=== PATIENT | male | born 2005 | race Caucasian/White ===

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

== ENCOUNTER 2024-07-25 13:15 | Emergency (ER) | payer SELFPAY ==
[2024-07-25 13:35] VITALS: BP 106/72; PULSE 52; RESP 20; TEMP 36.6; O2SAT 100; BMI 19.9
--- NOTE | 2024-07-25 13:38 | EXP.UTC ---
Discharge Plan Disposition Patient Disposition: Home, Self-Care Condition: Good Prescriptions Prescriptions: New metronidazole 500 mg tablet 2,000 mg PO ONCE Qty: 4 0RF ondansetron 4 mg Tablet,Disintegrating 4 mg PO Q8H PRN (Reason: Nausea) Qty: 6 0RF No Action ondansetron 4 mg tablet,disintegrating 4 mg PO Q8H PRN (Reason: nausea and vomiting) Qty: 10 0RF amoxicillin-pot clavulanate 875-125 mg Tablet 1 tab PO Q12H 7 Days Qty: 14 0RF fluticasone propionate [Flonase Allergy Relief] 50 mcg/actuation spray,suspension 1 - 2 spray intranasal DAILY Qty: 16 0RF Rx Instructions: administer into each nostril daily Referrals Follow up/Referrals: Provider,Referral, MD [Primary Care Provider] - See instructions Activity Restrictions/Add. Instructions Additional Instructions/Restrictions: Drink plenty of fluids with the medication. Don't drink alcohol for a couple of days after taking the metronidazole (flagyl) antibiotic. Take the zofran (ondesetron) if the antibiotic upsets your stomach. Abstain from unprotected sex for 1 week after being treated for trichomonas. Follow up with your regular doctor. GO TO THE ER FOR ANY WORSENING SYMPTOMS Clinical Impressions Clinical Impression: Exposure to STD Stand Alone Forms Stand Alone Forms: Work/School Release Instructions Patient Instructions: Metronidazole, DI for Trichomoniasis Print Language Print Language: Croatian Discharge ED Provider: Sean Friedman [facility] [place] HPI General Stated complaint: STI tested Time Seen by Provider: 07/25/24 13:38 History of Present Illness Provider Complaint: He states that he was notified that he was exposed to trichomonas by a sex partner. He denies any symptoms. Related Data Previous Rx's ?Medication ?Instructions ?Recorded amoxicillin 875 mg-potassium 1 tab PO Q12H 7 days #14 tabs 07/20/23 clavulanate 125 mg tablet fluticasone propionate 50 1 - 2 spray intranasal DAILY #16 07/20/23 mcg/actuation nasal grams spray,suspension (Flonase Allergy Relief) ondansetron 4 mg disintegrating 4 mg PO Q8H PRN nausea and 07/20/23 tablet vomiting #10 tabs metronidazole 500 mg tablet 2,000 mg (4 x 500 mg) PO ONCE #4 07/25/24 tabs ondansetron 4 mg disintegrating 4 mg PO Q8H PRN Nausea #6 tabs 07/25/24 tablet Allergies Allergy/AdvReac Type Severity Reaction Status Date / Time No Known Allergies Allergy Unverified 10/27/17 15:17 [facility] Disclaimer: The information contained in this section may have been updated after the patient was seen, as this information can be updated by other users. Social History (Updated 06/17/23 @ 17:55 by Sean Frideman APRN) Smoking Status: Never smoker alcohol intake: never current occupational status: student Travel in the last 8 weeks: None ROS Obtained: Yes All systems reviewed & no additional complaints except as documented Constitutional Constitutional: Denies chills and Denies fever(s) Eyes Eyes: Denies eye discharge ENT Ears, Nose, Mouth, and Throat: Denies dizziness, Denies otalgia and Denies sore throat Cardiovascular Cardiovascular: Denies chest pain Respiratory Respiratory: Denies shortness of breath, Denies chest congestion, Denies cough, Denies stridor and Denies wheezing Gastrointestinal Gastrointestingal: Denies nausea or vomiting Musculoskeletal Musculoskeletal: Reports system reviewed and no additional complaints, except as documented and Denies arthralgias Integumentary/Breasts Skin/Breast: Denies rash Neurologic Neurologic: Denies dizziness and Denies paresthesias Allergic/Immunologic Allergic/Immunologic: Denies wheezing Physical Exam General General appearance: alert and in no apparent distress Head Head exam: atraumatic, normocephalic and normal inspection Eye Eye exam: Present normal appearance, PERRL and EOMI ENT ENT exam: Present normal exam, normal oropharynx, mucous membranes moist, TM's normal bilaterally and normal external ear exam Neck Neck exam: Present normal inspection, full ROM and trachea midline; Absent meningismus or lymphadenopathy Chest Chest inspection: Present normal inspection and symmetric chest wall rise; Absent tenderness Respiratory Respiratory exam: Present normal lung sounds bilaterally; Absent respiratory distress Cardiovascular Cardiovascular exam: Present regular rate and normal rhythm; Absent JVD Abdominal Exam Abdominal exam: Present soft and normal bowel sounds; Absent distention, tenderness or guarding Extremities Exam Extremities exam: Present normal inspection, full ROM and normal capillary refill; Absent calf tenderness Back Exam Back exam: Present normal inspection; Absent tenderness Neurological Exam Neurological exam: Present alert and oriented X3 Psychiatric Psychiatric exam: Present normal affect and normal mood Skin Skin exam: Present warm, dry, intact and normal color Lymphatic Lymphatic Findings: no adenopathy Medical Decision Making Medical Records Medical records reviewed: No I reviewed the patient's medical records. Wayne Inquiry Pt receiving controlled substance: No
[2024-07-25 13:55] VITALS: BP 106/72; PULSE 52; RESP 20; TEMP 36.6; O2SAT 100
[2024-07-27 04:10] LABS: Neisseria gonorrhoeae, NAA Negative (Negative)
== END 2024-07-25 13:57 | disposition home or self-care (01) ==
PROVIDERS: Emergency Provider Nurse Practitioner Family
DX: Z20.2 Contact with and (suspected) exposure to infections with a predominantly sexual mode of transmission (principal)
CPT/HCPCS: 87086; 87491; 87591; 99212; 99213; G0463

== ENCOUNTER 2024-08-28 18:25 | Emergency (ER) | payer SELFPAY ==
[2024-08-28 18:35] VITALS: BP 135/78; PULSE 92; RESP 18; TEMP 36.6; O2SAT 98; BMI 19.3
--- NOTE | 2024-08-28 18:38 | EXP.UTC ---
Discharge Plan Disposition Patient Disposition: Home, Self-Care Condition: Good Prescriptions Prescriptions: New ibuprofen [IBU] 800 mg tablet 800 mg PO Q8HP PRN (Reason: Moderate Pain) Qty: 30 0RF amoxicillin-pot clavulanate 875-125 mg Tablet 1 tab PO Q12H Qty: 20 0RF Referrals Follow up/Referrals: Provider,Referral, [Primary Care Provider] - See instructions Activity Restrictions/Add. Instructions Additional Instructions/Restrictions: Take tylenol or ibuprofen for pain or fever. Take the antibiotics as directed. Follow up with your regular doctor. Follow up with a dentist. GO TO THE ER FOR ANY WORSENING SYMPTOMS Clinical Impressions Clinical Impression: Dental abscess, Jaw pain Stand Alone Forms Stand Alone Forms: Work/School Release Instructions Patient Instructions: DI for Tooth Abscess, DI for Dental Pain, Ibuprofen, Amoxicillin and Clavulanic Acid Print Language Print Language: Samoan Discharge ED Provider: Sean Friedman [facility] [place] HPI General Stated complaint: Dental pain Mode of Arrival: Ambulatory Source of Information: Patient Time Seen by Provider: 08/28/24 18:38 Description of Symptoms (Recalled from Triage Doc. by RN): GUM INFECTION, BILATERAL WITH SWELLING 08/18 PAIN HEENT Symptoms (Recalled from RN notes): Yes Resp Symptoms (Recalled from RN notes): No Skin Symptoms (Recalled from RN notes): No MS Symptoms (Recalled from RN notes): No Functional Status (Recalled from RN notes): WNL History of Present Illness Provider Complaint: He states that he has had worsening dental pain for the past several days. He has multiple decayed and cracked teeth. He is having swelling of his gums of his left upper jaw. Related Data Previous Rx's ?Medication ?Instructions ?Recorded amoxicillin 875 mg-potassium 1 tab PO Q12H #20 tabs 08/28/24 clavulanate 125 mg tablet ibuprofen 800 mg tablet (IBU) 800 mg PO Q8HP PRN Moderate Pain 08/28/24 #30 tabs Allergies Allergy/AdvReac Type Severity Reaction Status Date / Time No Known Allergies Allergy Unverified 10/27/17 15:17 Worker's Comp Is this a Worker's Comp case?: No [facility] Disclaimer: The information contained in this section may have been updated after the patient was seen, as this information can be updated by other users. Social History (Updated 06/17/23 @ 17:55 by Sean Friedman APRN) Smoking Status: Never smoker alcohol intake: never current occupational status: student Travel in the last 8 weeks: None ROS Obtained: Yes All systems reviewed & no additional complaints except as documented Constitutional Constitutional: Denies chills and Denies fever(s) Eyes Eyes: Denies eye discharge ENT Ears, Nose, Mouth, and Throat: Reports as per HPI, Denies dizziness, Denies otalgia and Denies sore throat Cardiovascular Cardiovascular: Denies chest pain Respiratory Respiratory: Denies shortness of breath, Denies chest congestion, Denies cough, Denies stridor and Denies wheezing Gastrointestinal Gastrointestingal: Denies nausea or vomiting Musculoskeletal Musculoskeletal: Reports system reviewed and no additional complaints, except as documented and Denies arthralgias Integumentary/Breasts Skin/Breast: Denies rash Neurologic Neurologic: Denies dizziness and Denies paresthesias Allergic/Immunologic Allergic/Immunologic: Denies wheezing Physical Exam General General appearance: alert and in no apparent distress Head Head exam: atraumatic, normocephalic and normal inspection Eye Eye exam: Present normal appearance, PERRL and EOMI ENT ENT exam: Present mucous membranes moist, TM's normal bilaterally and normal external ear exam Expanded ENT Exam Nose exam: Absent sinus tenderness Nasal speculum exam: Bilateral: normal Mouth exam: Present normal external inspection; Absent drooling Teeth exam: Present dental caries, fractured tooth #, dental tenderness # and gingival swelling Throat exam: Present normal inspection Neck Neck exam: Present normal inspection, full ROM and trachea midline; Absent meningismus or lymphadenopathy Chest Chest inspection: Present normal inspection and symmetric chest wall rise; Absent tenderness Respiratory Respiratory exam: Present normal lung sounds bilaterally; Absent respiratory distress Cardiovascular Cardiovascular exam: Present regular rate and normal rhythm; Absent JVD Abdominal Exam Abdominal exam: Present soft and normal bowel sounds; Absent distention, tenderness or guarding Extremities Exam Extremities exam: Present normal inspection, full ROM and normal capillary refill; Absent calf tenderness Back Exam Back exam: Present normal inspection; Absent tenderness Neurological Exam Neurological exam: Present alert and oriented X3 Psychiatric Psychiatric exam: Present normal affect and normal mood Skin Skin exam: Present warm, dry, intact and normal color Lymphatic Lymphatic Findings: no adenopathy Medical Decision Making Medical Records Medical records reviewed: No I reviewed the patient's medical records. Screening: Per USPSTF and CDC recommendations, given the prevalence of disease in our region, it is our hospital?s policy to screen for HIV and viral Hepatitis for all patients aged 18 and over and those with ongoing risk factors. Wayne Inquiry Pt receiving controlled substance: No Vital Signs: 08/28/24 18:35 Temperature 97.8 F Temperature Source Oral Pulse Rate [Right Brachial] 92 H Respiratory Rate 18 Blood Pressure [Left Arm] 135/78 Blood Pressure Mean [Left Arm] 97 02 Sat by Pulse Oximetry 98
[2024-08-28 18:48] VITALS: BP 135/78; PULSE 92; RESP 18; TEMP 36.6
== END 2024-08-28 18:53 | disposition home or self-care (01) ==
PROVIDERS: Emergency Provider Nurse Practitioner Family
DX: K04.7 Periapical abscess without sinus (principal); R68.84 Jaw pain
CPT/HCPCS: 99213; G0381

== ENCOUNTER 2024-11-25 16:58 | Emergency (ER) | payer SELFPAY ==
[2024-11-25 17:10] VITALS: BP 112/80; PULSE 86; RESP 19; TEMP 36.8; O2SAT 98; BMI 20.3
--- NOTE | 2024-11-25 17:16 | ED_ITS ---
Discharge Plan Disposition Patient Disposition: Home, Self-Care Condition: Good Prescriptions Prescriptions: New clindamycin HCl 300 mg capsule 300 mg PO Q8H Qty: 30 0RF ibuprofen [IBU] 800 mg tablet 800 mg PO Q8HP PRN (Reason: Moderate Pain) Qty: 30 0RF Referrals Follow up/Referrals: Provider,Referral, [Primary Care Provider] - See instructions Activity Restrictions/Add. Instructions Additional Instructions/Restrictions: Drink plenty of fluids. Take the medications as directed. Follow up with your regular doctor. GO TO THE ER FOR ANY WORSENING SYMPTOMS Make sure you are following with your dentist. Having to take antibiotics frequently like you are havitng to do is hard on you GI tract. Make sure you are eating yogurt frequently or taking a probiotic while you on the antibiotics. Ask the pharmacist which probiotic they recommend for you to take to try to protect yourself from the frequent antibiotics. Clinical Impressions Clinical Impression: Dental abscess Instructions Patient Instructions: DI for Tooth Abscess, Ibuprofen, Clindamycin Print Language Print Language: Solomon Islander Discharge ED Provider: Sean Friedman [facility] General Stated complaint: Toothache Time Seen by Provider: 11/25/24 17:12 Related Data Previous Rx's ?Medication ?Instructions ?Recorded clindamycin HCl 300 mg capsule 300 mg PO Q8H #30 caps 11/25/24 ibuprofen 800 mg tablet (IBU) 800 mg PO Q8HP PRN Moderate Pain 11/25/24 #30 tabs Allergies Allergy/AdvReac Type Severity Reaction Status Date / Time No Known Allergies Allergy Verified 11/25/24 17:18 [facility] Disclaimer: The information contained in this section may have been updated after the patient was seen, as this information can be updated by other users. Medical History (Updated 11/25/24 @ 17:55 by Sean Friedman APRN) No significant past medical history Social History (Updated 06/17/23 @ 17:55 by Sean Friedman APRN) Smoking Status: Never smoker alcohol intake: never current occupational status: student Travel in the last 8 weeks: None Have you lived/traveled outside [place] in past 30 days?: No Contact w/someone who lives/traveled outside US past 30 days?: No Exposure to someone with infectious disease in past 14 days?: No Do you have a fever (greater than 100.4 F or 38 C)?: No Have you tested positive for COVID-19: No Exposed to someone with COVID-19 in past 14 days?: No Do you have a sore throat?: No Do you have a cough?: No Do you have any weakness?: No Do you have any diarrhea?: No Are you experiencing any unusual bleeding?: No Do you have any muscle aches/pain?: No Do you have any abdominal pain?: No Are you experiencing loss of taste or smell?: No ROS Obtained: Yes All systems reviewed & no additional complaints except as documented Constitutional Constitutional: Denies chills and Denies fever(s) Eyes Eyes: Denies eye discharge ENT Ears, Nose, Mouth, and Throat: Reports as per HPI, Denies dizziness, Denies otalgia and Denies sore throat Cardiovascular Cardiovascular: Denies chest pain Respiratory Respiratory: Denies shortness of breath, Denies chest congestion, Denies cough, Denies stridor and Denies wheezing Gastrointestinal Gastrointestingal: Denies nausea or vomiting Musculoskeletal Musculoskeletal: Reports system reviewed and no additional complaints, except as documented and Denies arthralgias Integumentary/Breasts Skin/Breast: Denies rash Neurologic Neurologic: Denies dizziness and Denies paresthesias Allergic/Immunologic Allergic/Immunologic: Denies wheezing Physical Exam General General appearance: alert and in no apparent distress Head Head exam: atraumatic, normocephalic and normal inspection Eye Eye exam: Present normal appearance, PERRL and EOMI ENT ENT exam: Present mucous membranes moist, TM's normal bilaterally and normal external ear exam Expanded ENT Exam Nose exam: Absent sinus tenderness Nasal speculum exam: Bilateral: normal Mouth exam: Present normal external inspection; Absent drooling Teeth exam: Present dental caries, fractured tooth # and dental tenderness # Throat exam: Present normal inspection Neck Neck exam: Present normal inspection, full ROM and trachea midline; Absent meningismus or lymphadenopathy Chest Chest inspection: Present normal inspection and symmetric chest wall rise; Absent tenderness Respiratory Respiratory exam: Present normal lung sounds bilaterally; Absent respiratory distress Cardiovascular Cardiovascular exam: Present regular rate and normal rhythm; Absent JVD Abdominal Exam Abdominal exam: Present soft and normal bowel sounds; Absent distention, tenderness or guarding Extremities Exam Extremities exam: Present normal inspection, full ROM and normal capillary refill; Absent calf tenderness Back Exam Back exam: Present normal inspection; Absent tenderness Neurological Exam Neurological exam: Present alert and oriented X3 Psychiatric Psychiatric exam: Present normal affect and normal mood Skin Skin exam: Present warm, dry, intact and normal color Lymphatic Lymphatic Findings: no adenopathy Medical Decision Making Medical Records Medical records reviewed: No I reviewed the patient's medical records. Screening: Per USPSTF and CDC recommendations, given the prevalence of disease in our region, it is our hospital?s policy to screen for HIV and viral Hepatitis for all patients aged 18 and over and those with ongoing risk factors. Wayne Inquiry Pt receiving controlled substance: No
[2024-11-25 17:52] VITALS: BP 112/80; PULSE 86; RESP 19; TEMP 36.8; O2SAT 98
== END 2024-11-25 18:00 | disposition home or self-care (01) ==
PROVIDERS: Emergency Provider Nurse Practitioner Family
DX: K04.7 Periapical abscess without sinus (principal)
CPT/HCPCS: 99212; G0381

== ENCOUNTER 2024-12-25 19:44 | Emergency (ER) | payer SELFPAY ==
[2024-12-25 19:48] VITALS: BP 124/79; PULSE 73; RESP 16; TEMP 36.8; O2SAT 100; BMI 21.2
--- NOTE | 2024-12-25 19:59 | PC.NURSE ---
Visual Acuity: R 20/70 L 20/100 Both 20/50 Patient typically wears contact lenses. Patient has not had contacts in since incident.
--- NOTE | 2024-12-25 20:08 | PC.NURSE ---
Provider at bedside. Eye tray and drake lamp at bedside.
--- NOTE | 2024-12-25 20:15 | HMH.EDGENADL ---
Discharge Plan Disposition Patient Disposition: Home, Self-Care Prescriptions Prescriptions: No Action clindamycin HCl 300 mg capsule 300 mg PO Q8H Qty: 30 0RF ibuprofen [IBU] 800 mg tablet 800 mg PO Q8HP PRN (Reason: Moderate Pain) Qty: 30 0RF Referrals Follow up/Referrals: Provider,Referral, MD [Primary Care Provider] - See instructions Activity Restrictions/Add. Instructions Additional Instructions/Restrictions: At this time it was felt you are safe to be discharged home. If new or worsening symptoms please do not hesitate to return the emergency department. Please apply 0.5 cm of the erythromycin ointment on the inside of your lower lid and blink multiple times to cover your entire eye 3 times a day both eyes for 5 days. Please do not wear your contacts during this time to lower your risk of infection. If your symptoms persist beyond [address] Selby at [facility] and significant tachycardia for continued evaluation. Clinical Impressions Clinical Impression: Welders' keratitis of both eyes Print Language Print Language: Mauritanian Discharge ED Provider: Smooth Charles General Adult HPI General Chief complaint: Eye Problems Stated complaint: AO 12/23/24 1530 flash burn both eyes Time Seen by Provider: 12/25/24 20:01 Mode of Arrival: Ambulatory Source of Information: Patient Limitations: No Limitations Description of Symptoms (Recalled from ER Triage Doc. by RN): Presents ambulatory to triage. 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 States the incident happened on Thursday. States bilateral eyes are burning and itching. States, I can't find anything to make them feel better. Denies any physical burn. Large rosalio noted to left face. 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 Onset was acute, occurring Thursday when his batteries failed to his welders goggles and he had significant Welders flash. Since then it has been difficult for him to look at bright lights. He does not have his contacts in currently. Due to persistent symptoms he presents here for continued evaluation. No trauma. Related Data Previous Rx's ?Medication ?Instructions ?Recorded clindamycin HCl 300 mg capsule 300 mg PO Q8H #30 caps 11/25/24 ibuprofen 800 mg tablet (IBU) 800 mg PO Q8HP PRN Moderate Pain 11/25/24 #30 tabs Allergies Allergy/AdvReac Type Severity Reaction Status Date / Time No Known Allergies Allergy Verified 11/25/24 17:18 [facility] Disclaimer: The information contained in this section may have been updated after the patient was seen, as this information can be updated by other users. Medical History (Updated 12/25/24 @ 20:14 by Smooth Charles MD) No significant past medical history Social History (Updated 06/17/23 @ 17:55 by Sean Friedman APRN) Smoking Status: Current every day smoker alcohol intake: never current occupational status: student Travel in the last 8 weeks: None Have you lived/traveled outside US in past 30 days?: No Contact w/someone who lives/traveled outside US past 30 days?: No Exposure to someone with infectious disease in past 14 days?: No Do you have a fever (greater than 100.4 F or 38 C)?: No Have you tested positive for COVID-19: No Exposed to someone with COVID-19 in past 14 days?: No Do you have a sore throat?: No Do you have a cough?: No Do you have any weakness?: No Do you have any diarrhea?: No Are you experiencing any unusual bleeding?: No Do you have any muscle aches/pain?: No Do you have any abdominal pain?: No Are you experiencing loss of taste or smell?: No ROS Obtained: Yes Systems reviewed as appropriate & no additional complaints except as documented Physical Exam General General appearance: alert and in no apparent distress Head Head exam: atraumatic and normocephalic Eye Eye exam: Present PERRL, EOMI and conjunctival redness ENT ENT exam: Present mucous membranes moist Neck Neck exam: Present normal inspection Chest Chest inspection: Present normal inspection and symmetric chest wall rise Respiratory Respiratory exam: Absent respiratory distress Cardiovascular Cardiovascular exam: Present regular rate and normal rhythm Abdominal Exam Abdominal exam: Present soft Extremities Exam Extremities exam: Present normal inspection Neurological Exam Neurological exam: Present alert and CN II-XII intact Psychiatric Psychiatric exam: Present normal affect Skin Skin exam: Present warm and dry Medical Decision Making Medical Records Screening: Per USPSTF and CDC recommendations, given the prevalence of disease in our region, it is our hospital?s policy to screen for HIV and viral Hepatitis for all patients aged 18 and over and those with ongoing risk factors. 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 Patient is hemodynamically stable nontoxic-appearing upon arrival, afebrile. History and physical strongly consistent with Welders keratitis. Given this patient was given erythromycin ointment bilateral eyes and was instructed not to wear contacts and to apply erythromycin room on outpatient basis and if symptoms persist to follow-up or return for continued evaluation. Workable labs and imaging was considered however given highly suspected diagnosis will be deferred at this time. Patient was discharged in stable condition. Procedure: Procedure performed was fluorescein facilitated eye exam. Tetracaine was applied to both eyes with good effect, fluorescein was applied and using Ware lamp had scattered uptake that was punctate over the cornea. Patient tolerated the procedure well. There were no immediate complications. Critical Care Critical Care Time Critical Care Time: No
--- NOTE | 2024-12-25 20:26 | PC.NURSE ---
Per provider's verbal order. One strip of Erythromycin ointment applied to each eye.
[2024-12-25 20:33] VITALS: BP 132/85; PULSE 85; RESP 16; TEMP 36.8; O2SAT 97
== END 2024-12-25 20:34 | disposition home or self-care (01) ==
PROVIDERS: Emergency Provider Emergency Medicine
DX: H16.133 Photokeratitis, bilateral (principal); H57.13 Ocular pain, bilateral; F17.210 Nicotine dependence, cigarettes, uncomplicated; W31.1XXA Contact with metalworking machines, initial encounter
CPT/HCPCS: 99283

== ENCOUNTER 2025-02-23 16:47 | Emergency (ER) | payer SELFPAY ==
[2025-02-23 16:51] VITALS: BP 112/64; PULSE 89; RESP 18; TEMP 36.6; O2SAT 100; BMI 21.2
--- NOTE | 2025-02-23 16:57 | ED_ITS ---
<Statement entered by Cortney Ramon DO - 02/24/25 00:38> I was consulted by the ALISHA, and we discussed the complexity of the problems being addressed. I approved the treatment and management plan for this patient's care in the emergency department, thus performing a substantive portion of the medical decision making. Cortney Ramon DO Discharge Plan Disposition Patient Disposition: Home, Self-Care Condition: Good Prescriptions Prescriptions: No Action ibuprofen [IBU] 800 mg tablet 800 mg PO Q8HP PRN (Reason: Moderate Pain) Qty: 30 0RF Referrals Follow up/Referrals: Provider,Referral, MD [Primary Care Provider] - See instructions Activity Restrictions/Add. Instructions Additional Instructions/Restrictions: Recommend taking Tylenol alternating with Motrin every 4 hours for your symptoms. If you have any continuing new or worsening signs or symptoms follow- up with your PCP return to the ER as needed. Clinical Impressions Clinical Impression: Upper respiratory infection Qualifiers: URI type: unspecified URI Qualified Code(s): J06.9 - Acute upper respiratory infection, unspecified Stand Alone Forms Stand Alone Forms: Work/School Release Print Language Print Language: Indonesian Discharge ED Provider: Cortney Ramon General Adult HPI General Chief complaint: Upper Respiratory Infection Stated complaint: headache,sore throat,sinus pressure Time Seen by Provider: 02/23/25 16:57 Mode of Arrival: Ambulatory Source of Information: Patient Description of Symptoms (Recalled from ER Triage Doc. by RN): Pt presents with c/o sinus pressure, and sore throat x 1 week. History of Present Illness HPI narrative: Patient presents for evaluation of 5 days of headache sore throat and malaise. He denies any fever chills hemoptysis hematochezia melena nausea vomiting diarrhea. He has tried Tylenol and Motrin that have not helped his headache. Related Data Previous Rx's ?Medication ?Instructions ?Recorded ibuprofen 800 mg tablet (IBU) 800 mg PO Q8HP PRN Moderate Pain 11/25/24 #30 tabs Allergies Allergy/AdvReac Type Severity Reaction Status Date / Time No Known Allergies Allergy Verified 11/25/24 17:18 [facility] Disclaimer: The information contained in this section may have been updated after the patient was seen, as this information can be updated by other users. Medical History (Updated 02/23/25 @ 18:32 by DIDIER Escobar) No significant past medical history Social History (Updated 06/17/23 @ 17:55 by Sean Friedman APRN) Smoking Status: Current every day smoker alcohol intake: never current occupational status: student Travel in the last 8 weeks: None Have you lived/traveled outside US in past 30 days?: No Contact w/someone who lives/traveled outside US past 30 days?: No Exposure to someone with infectious disease in past 14 days?: No Do you have a fever (greater than 100.4 F or 38 C)?: No Have you tested positive for COVID-19: No Exposed to someone with COVID-19 in past 14 days?: No Do you have a sore throat?: No Do you have a cough?: No Do you have any weakness?: No Do you have any diarrhea?: No Are you experiencing any unusual bleeding?: No Do you have any muscle aches/pain?: No Do you have any abdominal pain?: No Are you experiencing loss of taste or smell?: No ROS Obtained: Yes Systems reviewed as appropriate & no additional complaints except as documented Physical Exam General General appearance: alert and in no apparent distress Respiratory Respiratory exam: Present normal lung sounds bilaterally Cardiovascular Cardiovascular exam: Present regular rate Neurological Exam Neurological exam: Present alert and oriented X3 Medical Decision Making Medical Records Medical records reviewed: Yes I reviewed the patient's medical records. Screening: Per USPSTF and CDC recommendations, given the prevalence of disease in our region, it is our hospital?s policy to screen for HIV and viral Hepatitis for all patients aged 18 and over and those with ongoing risk factors. Wayne Inquiry Pt receiving controlled substance: No Vital Signs: 02/23/25 16:51 02/23/25 18:59 Temperature 98 F 98.3 F Temperature Source Oral Oral Pulse Rate 72 Pulse Rate [Right] 89 Respiratory Rate 18 18 Blood Pressure 118/76 Blood Pressure [Right Arm] 112/64 Blood Pressure Mean [Right Arm] 80 Blood Pressure Source Automatic Cuff Blood Pressure Source [Right Arm] Automatic Cuff Blood Pressure Position Sitting Blood Pressure Position [Right Arm] Sitting 02 Sat by Pulse Oximetry 100 Oxygen Delivery Method Room Air Room Air Lab Data Lab results reviewed: Yes I reviewed the patient's lab results. Lab Results 02/23/25 16:58: SARS-CoV-2 (PCR) Not detected, Influenza A Untype (PCR) Not detected, Influenza Type B (PCR) Not detected, Group A Strep Rapid Negative Orders (Tests/Meds): ED MEDICATIONS Discontinued Medications Generic Name Dose Route Start Last Admin Trade Name Liu PRN Reason Stop Dose Admin Acetaminophen 1,000 mg 02/23/25 17:12 02/23/25 17:18 Acetaminophen 500mg Tab PO 02/23/25 17:13 1,000 mg ONCE ONE Administration Dexamethasone Sodium Phosphate 8 mg 02/23/25 17:15 02/23/25 17:19 Dexamethasone 4mg/Ml 5ml Mdv IM 03/25/25 17:14 8 mg Q6H MICHAEL Administration Ketorolac Tromethamine 30 mg 02/23/25 17:12 02/23/25 17:18 Ketorolac 30mg/Ml Vial IM 02/23/25 17:13 30 mg ONCE ONE Administration Methocarbamol 500 mg 02/23/25 17:12 02/23/25 18:12 Methocarbamol 500mg Tablet PO 02/23/25 17:13 Not Given ONCE ONE ORDERS Category Date Time Status Rapid PCR Covid and Flu A/B Stat Lab 02/23/25 16:58 Completed Strep Scrn Group A (Rapid) Stat Lab 02/23/25 16:58 Completed Medical Decision Narrative: In summary patient is a 19-year-old male who presents to the emergency department for evaluation of headache cough sore throat. Patient is hemodynamically stable upon arrival, afebrile. Physical exam is remarkable for erythematous posterior pharynx without evidence of exudate, no focal neurologic deficits, no nuchal rigidity, clear breath sounds without increased work of breathing or adventitious sounds. No cervical lymphadenopathy.. Differential diagnosis includes upper or lower respiratory tract infection. Initial workup will be conducted with strep COVID and flu swabs. Initial interventions include Tylenol Decadron Robaxin and Toradol initial workup reviewed by me and his strep COVID and flu swabs are negative.. Upon repeat evaluation patient reported moderate improvement in his symptoms. Given this patient is appropriate for discharge with instructions to continue supportive symptomatic care with Tylenol and ibuprofen and close follow-up with his PCP. For any worsening signs or symptoms. Critical Care Critical Care Time Critical Care Time: No
[2025-02-23 17:08] LABS: Coronavirus 19, PCR Not Detected (NotDetected); Influenza A, PCR Not Detected (NotDetected); Influenza B, PCR Not Detected (NotDetected)
[2025-02-23] MEDS: ACETAMINOPHEN 500MG TAB 1000 MG PO (17:18)
[2025-02-23] MEDS: KETOROLAC 30MG/ML VIAL 30 MG IM (17:18)
[2025-02-23] MEDS: DEXAMETHASONE 4MG/ML 5ML MDV 8 MG IM (17:19)
[2025-02-23 17:20] LABS: Strep Scrn Group A (Rapid) Negative (Negative)
[2025-02-23 18:59] VITALS: BP 118/76; PULSE 72; RESP 18; TEMP 36.8; O2SAT 98
== END 2025-02-23 19:00 | disposition home or self-care (01) ==
PROVIDERS: Emergency Provider Emergency Medicine
DX: R51.9 Headache, unspecified (principal); R07.0 Pain in throat; R09.81 Nasal congestion; J06.9 Acute upper respiratory infection, unspecified
CPT/HCPCS: 87430; 87636; 96372; 99283; J1100; J1885

== ENCOUNTER 2025-05-03 05:14 | Emergency (ER) | payer SELFPAY ==
--- OUTSIDE RECORDS SUMMARY | 2025-05-03 05:19 | XMS_ITS | Clinical Summary ---
Author Organization Healthcare Address [address] [place] [address] Care Team Providers Care Tableau Report Developer Name Role Phone Unavailable Primary Care Provider Unavailabl e Social History Tobacco Use Types Packs/Day Years Used Date Smoking Tobacco: Never Alcohol Use Standard Drinks/Week Comments No 0 (1 standard drink = 0.6 oz pure alcohol) Alcoholic Drinks/day: Never Drank Alcohol Sex and Gender Information Value Date Recorded Sex Assigned at Not on file Legal Sex Male 8:29 PM EDT Gender Identity Not on file Sexual Orientation Not on file Last Filed Vital Signs Vital Sign Reading Time Taken Comments Blood Pressure - - Pulse - - Temperature - - Respiratory Rate - - Oxygen Saturation - - Inhaled Oxygen Concentration - - Weight 29.1 kg (64 lb 3.9 oz) 05/25/2013 10:23 A M EDT Height 133.4 cm (4' 4.5 ) 05/25/2013 10:23 AM ED T Body Mass Index 16.39 05/25/2013 10:23 AM EDT Plan of Treatment Not on file
--- OUTSIDE RECORDS SUMMARY | 2025-05-03 05:19 | XMS_ITS | Clinical Summary ---
Author [facility] Address [address] [place] [address] Phone Care Team Providers Care Disintegrator Name Role Phone Unavailable Primary Care Provider Unavailabl e Allergies No known active allergies Medications No known medications Social History Tobacco Use Types Packs/Day Years Used Date Smoking Tobacco: Passive Smo ke Exposure - Never Smoker Alcohol Use Standard Drinks/Week Comments No 0 (1 standard drink = 0.6 oz pur e alcohol) Sex and Gender Information Value Date Recorded Sex Assigned at Not on file Legal Sex Male 4:43 AM EDT Gender Identity Not on file Sexual Orientation Not on file Obstetrics History Last Filed Vital Signs Vital Sign Reading Time Taken Comments Blood Pressure - - Pulse 86 07/16/2012 8:35 PM EDT Temperature 36.6 C (97.9 F) 07/16/2012 8:35 PM EDT Respiratory Rate 16 07/16/2012 8:35 PM EDT Oxygen Saturation 100% 07/16/2012 8:35 PM EDT Inhaled Oxygen Concentration - - Weight 26.1 kg (57 lb 8 oz) 07/16/2012 8:49 PM E DT Height - - Body Mass Index - - Plan of Treatment Health Maintenance Due Date Last Done Comments Annual Wellness Exam 2007 HPV (1 - Male 3-dose series) 2019 Meningococcal B Vaccine (1 o f 2 - Standard) 2020 DTaP/TDaP/Td (1 - Tdap) 2023 Hepatitis B Vaccine (1 of 3 - 19+ 3-dose series) 2023 COVID-19 Vaccine ( - 2023-2 5 season) 2024 Influenza Vaccine (Season Ended) 2025 Pneumococcal Vaccine 0-49 Aged Out No longer eligible based on patient's age to complete this topic
[2025-05-03 05:23] VITALS: BP 126/81; PULSE 72; RESP 16; TEMP 36.7; O2SAT 98; BMI 20.7
--- NOTE | 2025-05-03 05:23 | HMH.EDGENADL ---
Discharge Plan Disposition Patient Disposition: Home, Self-Care Prescriptions Prescriptions: No Action ibuprofen [IBU] 800 mg tablet 800 mg PO Q8HP PRN (Reason: Moderate Pain) Qty: 30 0RF Referrals Follow up/Referrals: Provider,Referral, [Primary Care Provider, Medical] - See instructions Activity Restrictions/Add. Instructions Additional Instructions/Restrictions: Please follow-up with your primary care provider. Please return to the emergency department if you develop any new or worsening symptoms or become concerned for your health. Clinical Impressions Clinical Impression: Sore throat Vomiting Qualifiers: Migraine intractability: nonintractable Print Language Print Language: Cook Islander Discharge ED Provider: Romeo Putnam General Adult HPI General Stated complaint: sore throat, vomiting Time Seen by Provider: 05/03/25 05:15 History of Present Illness HPI narrative: 19-year-old male without significant past medical history presents for sore throat and vomiting. He reports his throat has been sore for the last week and is getting better. He was started on amoxicillin a few days ago, he got it from his mom. He was not definitively diagnosed with strep throat. This morning his stomach was upset and when he was at work he had an episode of vomiting. He had to leave work and was told to go get seen. He reports that he feels better now and does not have any significant complaints besides mild sore throat. Related Data Previous Rx's ?Medication ?Instructions ?Recorded ibuprofen 800 mg tablet (IBU) 800 mg PO Q8HP PRN Moderate Pain 11/25/24 #30 tabs Allergies Allergy/AdvReac Type Severity Reaction Status Date / Time No Known Allergies Allergy Verified 11/25/24 17:18 [facility] Disclaimer: The information contained in this section may have been updated after the patient was seen, as this information can be updated by other users. Medical History (Updated 05/03/25 @ 05:23 by Romeo Putnam MD) No significant past medical history Social History (Updated 06/17/23 @ 17:55 by Sean Friedman APRN) Smoking Status: Current every day smoker alcohol intake: never current occupational status: student Travel in the last 8 weeks?: None ROS Obtained: Yes All systems reviewed & no additional complaints except as documented Physical Exam General General appearance: alert and in no apparent distress Head Head exam: atraumatic and normocephalic Eye Eye exam: Present normal appearance, PERRL and EOMI ENT ENT exam: Present normal oropharynx and normal external ear exam Neck Neck exam: Present normal inspection and full ROM Chest Chest inspection: Present normal inspection and symmetric chest wall rise; Absent tenderness Respiratory Respiratory exam: Present normal lung sounds bilaterally; Absent respiratory distress Cardiovascular Cardiovascular exam: Present regular rate and normal rhythm Abdominal Exam Abdominal exam: Present soft; Absent distention, tenderness or guarding Extremities Exam Extremities exam: Present normal inspection; Absent edema or joint swelling Back Exam Back exam: Present normal inspection; Absent tenderness Neurological Exam Neurological exam: Present alert and oriented X3; Absent motor sensory deficit Psychiatric Psychiatric exam: Present normal affect and normal mood Skin Skin exam: Present warm, dry and normal color Lymphatic Lymphatic Findings: no adenopathy Medical Decision Making Medical Records Medical records reviewed: Yes I reviewed the patient's medical records. Screening: Per USPSTF and CDC recommendations, given the prevalence of disease in our region, it is our hospital?s policy to screen for HIV and viral Hepatitis for all patients aged 18 and over and those with ongoing risk factors. Wayne Inquiry Pt receiving controlled substance: No Wayne was queried for this patient: No Lab Data Lab results reviewed: Yes I reviewed the patient's lab results. Medical Decision Narrative: 1-year-old male without significant past medical history presents for an episode of vomiting and 1 week of sore throat. History was obtained via interactive discussion with patient. On arrival, patient is [afebrile, hemodynamically stable, satting appropriately, alert, oriented x4, GCS 15], moving all extremities spontaneously. Full physical exam performed and significant for clear oropharynx without evidence of exudate or tonsillar erythema. No lymphadenopathy. Abdomen is soft and nontender. Differential includes but is not limited to URI, strep throat, gastroenteritis, pancreatitis, cholecystitis. No significance of emergent pathology at this time given benign exam. Patient's stomach may be upset secondary to his antibiotics. These findings were communicated to patient and he was discharged in stable condition. He declined prescription for nausea medication.. Procedures Risk/Benefits of Procedure(s) Were Explained: Yes Critical Care Critical Care Time Critical Care Time: No
[2025-05-03 05:28] VITALS: BP 126/81; PULSE 72; RESP 16; TEMP 36.7
== END 2025-05-03 05:33 | disposition home or self-care (01) ==
PROVIDERS: Emergency Provider Emergency Medicine
DX: R11.2 Nausea with vomiting, unspecified (principal); R07.0 Pain in throat
CPT/HCPCS: 99282

== ENCOUNTER 2025-05-18 17:04 | Emergency (ER) | payer SELFPAY ==
[2025-05-18 17:12] VITALS: BP 133/89; PULSE 91; RESP 16; TEMP 37; O2SAT 100
--- OUTSIDE RECORDS SUMMARY | 2025-05-18 17:13 | XMS_ITS | Clinical Summary ---
Author Organization Healthcare Address [address] [place] [address] Care Team Providers Care Construction Operations Manager Name Role Phone Unavailable Primary Care Provider [...]
--- OUTSIDE RECORDS SUMMARY | 2025-05-18 17:13 | XMS_ITS | Clinical Summary ---
[facility] Address [address] [place] [address] Phone Care Team Providers Care Financial Services Internship Name Role Phone Unavailable Primary Care Provider [...] - 2023-2 5 season) 2024 Influenza Vaccine (#1) 2025 Pneumococcal Vaccine 0-49 Aged Out No longer eligible based on patient's age to complete this topic
--- NOTE | 2025-05-18 17:17 | HMH.EDGENADL ---
Discharge Plan Disposition Patient Disposition: Home, Self-Care Condition: Good Prescriptions Prescriptions: New amoxicillin-pot clavulanate 875-125 mg tablet 1 tab PO BID 7 Days Qty: 14 0RF No Action ibuprofen [IBU] 800 mg tablet 800 mg PO Q8HP PRN (Reason: Moderate Pain) Qty: 30 0RF Referrals Follow up/Referrals: Provider,Referral, MD [Primary Care Provider, Medical] - See instructions Activity Restrictions/Add. Instructions Additional Instructions/Restrictions: Please follow-up with your dentist in the upcoming days, please utilize Tylenol and ibuprofen as needed for symptomatic relief, please take your antibiotic as prescribed with food. Please return to the emergency department any worsening signs or symptoms. Clinical Impressions Clinical Impression: Dental caries Stand Alone Forms Stand Alone Forms: Work/School Release Instructions Patient Instructions: DI for Tooth Decay, DI for Dental Pain Print Language Print Language: Chilean Discharge ED Provider: Beau Negron General Adult HPI <DIDIER Amaro - Last Filed: 05/18/25 18:14> General Chief complaint: Upper Respiratory Infection Stated complaint: body aches,cough ,tooth pain Time Seen by Provider: 05/18/25 17:13 Mode of Arrival: Ambulatory Source of Information: Patient Description of Symptoms (Recalled from ER Triage Doc. by RN): PT presents to the ED for evaluation of upper resp. infection also complaints of tooth pain. Pt stated his daughter has Hand, foot, mouth and now he feels like he has the flu. History of Present Illness HPI narrative: 19-year-old male presents the emergency department with left-sided tooth pain for the last couple of days, patient states that he has slated dental follow-up/appointment to get all my teeth pulled , next week, patient states the tooth pain has been worsening on the left side for the last couple of days, he denies fever chills chest pain shortness of breath nausea vomiting dysphagia, no constipation no diarrhea no urinary cosmetology, patient does admit to some fatigue, and wants to be evaluated for upper respiratory infection, he states that his daughter has eaqu-vwev-xwi-mouth disease , he does not have any skin manifestations or oral manifestations, patient has any alcohol tobacco or drug use, patient has no other real relevant past medical history takes no other medications at home, has been taking a Profen and Tylenol for his pain. Initial triage vitals are unremarkable. Onset (ago): day(s) Related Data Previous Rx's ?Medication ?Instructions ?Recorded ibuprofen 800 mg tablet (IBU) 800 mg PO Q8HP PRN Moderate Pain 11/25/24 #30 tabs amoxicillin 875 mg-potassium 1 tab PO BID 7 days #14 tabs 05/18/25 clavulanate 125 mg tablet Allergies Allergy/AdvReac Type Severity Reaction Status Date / Time No Known Allergies Allergy Verified 11/25/24 17:18 [facility] <DIDIER Amaro - Last Filed: 05/18/25 18:14> [facility] Disclaimer: The information contained in this section may have been updated after the patient was seen, as this information can be updated by other users. Medical History (Updated 05/18/25 @ 18:13 by DIDIER Amaro) No significant past medical history Social History (Updated 06/17/23 @ 17:55 by Sean Friedman APRN) Smoking Status: Never smoker alcohol intake: never current occupational status: student Travel in the last 8 weeks?: None Have you lived/traveled outside US in past 30 days?: No Contact w/someone who lives/traveled outside US past 30 days?: No Exposure to someone with infectious disease in past 14 days?: No Do you have a fever (greater than 100.4 F or 38 C)?: No Have you tested positive for COVID-19?: No Exposed to someone with COVID-19 in past 14 days?: No Do you have a sore throat?: Yes Do you have a cough?: Yes Do you have any weakness?: No Do you have any diarrhea?: No Are you experiencing any unusual bleeding?: No Do you have any muscle aches/pain?: No Do you have any abdominal pain?: No Are you experiencing loss of taste or smell?: No <DIDIER Amaro - Last Filed: 05/18/25 18:14> ROS Obtained: Yes All systems reviewed & no additional complaints except as documented Physical Exam <DIDIER Amaro - Last Filed: 05/18/25 18:14> General General appearance: alert and in no apparent distress Head Head exam: atraumatic and normocephalic Eye Eye exam: Present PERRL and EOMI ENT ENT exam: Present normal oropharynx, mucous membranes moist and other (Multiple areas of poor dentition, most noted to the left back premolar, small periapical abscess is not amicable to drainage, in different areas of poor dentition/dental caries throughout) Neck Neck exam: Present normal inspection Chest Chest inspection: Present normal inspection and symmetric chest wall rise Respiratory Respiratory exam: Present normal lung sounds bilaterally; Absent respiratory distress Cardiovascular Cardiovascular exam: Present regular rate and normal rhythm Abdominal Exam Abdominal exam: Present soft; Absent tenderness Extremities Exam Extremities exam: Present normal inspection Neurological Exam Neurological exam: Present alert and oriented X3 Psychiatric Psychiatric exam: Present normal affect Skin Skin exam: Present warm and dry Medical Decision Making <DIDIER Amaro - Last Filed: 05/18/25 18:14> Medical Records Medical records reviewed: Yes I reviewed the patient's medical records. Screening: Per USPSTF and CDC recommendations, given the prevalence of disease in our region, it is our hospital?s policy to screen for HIV and viral Hepatitis for all patients aged 18 and over and those with ongoing risk factors. Wayne Inquiry Pt receiving controlled substance: No Wayne was queried for this patient: No Vital Signs: 05/18/25 17:12 05/18/25 18:19 Temperature 98.6 F 97.9 F Temperature Source Oral Oral Pulse Rate 84 Pulse Rate [Right] 91 H Respiratory Rate 16 16 Blood Pressure 120/86 Blood Pressure [Right Arm] 133/89 Blood Pressure Mean [Right Arm] 103 Blood Pressure Source Automatic Cuff Blood Pressure Position Sitting 02 Sat by Pulse Oximetry 100 Oxygen Delivery Method Room Air Room Air Lab Data Lab results reviewed: Yes I reviewed the patient's lab results. Lab Results 05/18/25 17:18: SARS-CoV-2 (PCR) Not detected, Influenza A Untype (PCR) Not detected, Influenza Type B (PCR) Not detected Orders (Tests/Meds): ED MEDICATIONS Discontinued Medications Generic Name Dose Route Start Last Admin Trade Name Freq PRN Reason Stop Dose Admin Dexamethasone Sodium Phosphate 10 mg 05/18/25 17:22 05/18/25 17:28 Dexamethasone 4mg/Ml 1ml Vial IM 05/18/25 17:23 10 mg ONCE ONE Administration Ketorolac Tromethamine 15 mg 05/18/25 17:22 05/18/25 17:27 Ketorolac 30mg/Ml Vial IM 05/18/25 17:23 15 mg ONCE ONE Administration Lidocaine HCl 15 ml 05/18/25 17:23 05/18/25 17:27 Lidocaine 2% Viscous Krystin 15ml Udc PO 05/18/25 17:24 15 ml ONCE ONE Administration ORDERS Category Date Time Status Rapid PCR Covid and Flu A/B Stat Lab 05/18/25 17:18 Completed Medical Decision Narrative: 19-year-old male presents emergency department with left-sided dental pain, differential diagnose include but not limited to, poor dentition, periapical abscess, periodontal abscess, URI among others. I discussed patient case with attending physician Will obtain a PCR COVID and flu, will give tooth ball, 15 mg IM Toradol, 10 mg IM dexamethasone for symptomatic relief, did offer the patient stronger analgesia he did not at this time. COVID-19 negative influenza A and B are negative. Reexamination of the patient at approximately 6:05 PM, patient states his pain is somewhat improved, patient was given strict ED return precautions, will prescribe Augmentin 875 mg p.o, twice daily for 7 days, or until dental follow-up, patient voiced understanding and agreed with current treatment plan/discharge plan. <Beau Negron MD - Last Filed: 05/19/25 02:01> Vital Signs: 05/18/25 17:12 05/18/25 18:19 Temperature 98.6 F 97.9 F Temperature Source Oral Oral Pulse Rate 84 Pulse Rate [Right] 91 H Respiratory Rate 16 16 Blood Pressure 120/86 Blood Pressure [Right Arm] 133/89 Blood Pressure Mean [Right Arm] 103 Blood Pressure Source Automatic Cuff Blood Pressure Position Sitting 02 Sat by Pulse Oximetry 100 Oxygen Delivery Method Room Air Room Air Lab Data Lab Results 05/18/25 17:18: SARS-CoV-2 (PCR) Not detected, Influenza A Untype (PCR) Not detected, Influenza Type B (PCR) Not detected Orders (Tests/Meds): ED MEDICATIONS Discontinued Medications Generic Name Dose Route Start Last Admin Trade Name Freq PRN Reason Stop Dose Admin Dexamethasone Sodium Phosphate 10 mg 05/18/25 17:22 05/18/25 17:28 Dexamethasone 4mg/Ml 1ml Vial IM 05/18/25 17:23 10 mg ONCE ONE Administration Ketorolac Tromethamine 15 mg 05/18/25 17:22 05/18/25 17:27 Ketorolac 30mg/Ml Vial IM 05/18/25 17:23 15 mg ONCE ONE Administration Lidocaine HCl 15 ml 05/18/25 17:23 05/18/25 17:27 Lidocaine 2% Viscous Krystin 15ml Udc PO 05/18/25 17:24 15 ml ONCE ONE Administration ORDERS Category Date Time Status Rapid PCR Covid and Flu A/B Stat Lab 05/18/25 17:18 Completed Medical Decision Narrative: 19-year-old male presents emergency department with left-sided dental pain, differential diagnose include but not limited to, poor dentition, periapical abscess, periodontal abscess, URI among others. I discussed patient case with attending physician Will obtain a PCR COVID and flu, will give tooth ball, 15 mg IM Toradol, 10 mg IM dexamethasone for symptomatic relief, did offer the patient stronger analgesia he did not at this time. COVID-19 negative influenza A and B are negative. Reexamination of the patient at approximately 6:05 PM, patient states his pain is somewhat improved, patient was given strict ED return precautions, will prescribe Augmentin 875 mg p.o, twice daily for 7 days, or until dental follow-up, patient voiced understanding and agreed with current treatment plan/discharge plan. I was consulted by the ALISHA, and we discussed the complexity of the problems being addressed. I approve the treatment and management plan for this patient's care in the emergency department, thus performing a substantive portion of the medical decision making. Beau Negron MD Critical Care <DIDIER Amaro - Last Filed: 05/18/25 18:14> Critical Care Time Critical Care Time: No
--- NOTE | 2025-05-18 17:21 | PC.NURSE ---
Provider Pooja at bedside.
[2025-05-18 17:24] LABS: Coronavirus 19, PCR Not Detected (NotDetected); Influenza A, PCR Not Detected (NotDetected); Influenza B, PCR Not Detected (NotDetected)
[2025-05-18] MEDS: LIDOCAINE 2% VISCOUS SOL 15ML UDC 15 ML PO (17:27)
[2025-05-18] MEDS: KETOROLAC 30MG/ML VIAL 15 MG IM (17:27)
[2025-05-18] MEDS: DEXAMETHASONE 4MG/ML 1ML VIAL 10 MG IM (17:28)
[2025-05-18 18:19] VITALS: BP 120/86; PULSE 84; RESP 16; TEMP 36.6; O2SAT 99
== END 2025-05-18 18:20 | disposition home or self-care (01) ==
PROVIDERS: Emergency Provider Student in an Organized Health Care Education/Training Program
DX: J06.9 Acute upper respiratory infection, unspecified (principal); K02.9 Dental caries, unspecified
CPT/HCPCS: 87636; 96372; 99283; J1100; J1885

== ENCOUNTER 2025-07-05 17:19 | Emergency (ER) | payer SELFPAY ==
[2025-07-05 17:24] VITALS: BP 127/64; PULSE 79; RESP 18; TEMP 36.5; O2SAT 100; BMI 21.4
--- OUTSIDE RECORDS SUMMARY | 2025-07-05 17:30 | XMS_ITS | Clinical Summary ---
Author Organization [facility] Address [address] [place] [id number] Care Team Providers Care Cnc Lathe Machine Operator Name Role Phone Alka Jameson M.D., [place] Primary Care [facility] Source Comments [facility] is fully rolled out with thefollowing exceptions:General Clinical Research [facility] Allergies No known active allergies Medications acetaminophen (TYLENOL) 160 MG/5ML suspension Ac tive Active Problems Problem Noted Date Diagnosed Date Left elbow fracture 07/17/2012 Social History Tobacco Use Types Packs/Day Years Used Date Smoking Tobacco: Never Assessed Sex and Gender Information Value Date Recorded Sex Assigned at Not on file Legal Sex Male 5:38 AM EST Gender Identity Not on file Sexual Orientation Not on file Last Filed Vital Signs Vital Sign Reading Time Taken Comments Blood Pressure 128/78 07/17/2012 11:56 AM EDT Pulse 76 07/17/2012 11:56 AM EDT Temperature 36.7 C (98.1 F) 07/17/2012 11:56 AM EDT Respiratory Rate 18 07/17/2012 11:56 AM EDT Oxygen Saturation - - Inhaled Oxygen Concentration - - Weight 26.5 kg (58 lb 6.8 oz) 07/17/2012 11:51 A M EDT Height - - Body Mass Index - - Plan of Treatment Health Maintenance Due Date Last Done Comments MMR IMMUNIZATION (1 of 1 - S tandard series) 2005 DTAP/Tdap/Td IMMUNIZATION (1 - Tdap) 2011 VARICELLA IMMUNIZATION (1 of 2 - 13+ 2-dose series) 2017 HPV IMMUNIZATION (1 - Male 3 -dose series) 2019 MENINGOCOCCAL B VACCINE (1 o f 2 - Standard) 2020 HEPATITIS B IMMUNIZATION (1 of 3 - 19+ 3-dose series) 2023 COVID-19 Vaccine (1 - 2023-2 5 season) 2024 AMB SEASONAL FLU VACCINE (#1) 09/09/2025 HIB IMMUNIZATION Aged Out No longer e ligible based on patient's age to complete this topic IPV IMMUNIZATION Aged Out No longer e ligible based on patient's age to complete this topic MCV4 IMMUNIZATION Aged Out No longer eligible based on patient's age to complete this topic PNEUMOCOCCAL IMMUNIZATION Aged Out No longer eligible based on patient's age to complete this topic Respiratory Syncytial Virus (RSV) <20mo Aged Out No longer eligible b ased on patient's age to complete this topic Insurance [facility] Care Teams Cnc Lathe Machine Operator Relationship Specialty Start Date End Date Los Rucker Jr., M.D. [address] [place] [address] [address] [place] Christie [address] PCP - General External Internal Medicine 07/17/12
--- OUTSIDE RECORDS SUMMARY | 2025-07-05 17:30 | XMS_ITS | Clinical Summary ---
Author Organization [facility] Address [address] [place] [address] Care Team Providers Care Hand Stripper Name Role Phone Unavailable Primary Care Provider [...]
--- OUTSIDE RECORDS SUMMARY | 2025-07-05 17:30 | XMS_ITS | Clinical Summary ---
Author Organization [facility] Address [address] [place] [address] Phone Care Team Providers Care Leguillon Debeader Name Role Phone Unavailable Primary Care Provider [...]
--- NOTE | 2025-07-05 17:43 | HMH.EDGENADL ---
Discharge Plan Disposition Patient Disposition: Home, Self-Care Condition: Good Prescriptions Prescriptions: New olopatadine 0.1 % drops 1 drp ophthalmic (eye) BID Qty: 5 0RF Rx Instructions: separate doses by at least 6-8 hours erythromycin 5 mg/gram (0.5 %) ointment 1 applic ophthalmic (eye) Q8H Qty: 3.5 0RF Artificial Tears (cmc) 1 % drops 1 drp ophthalmic (eye) Q8H Qty: 15 0RF No Action ibuprofen [IBU] 800 mg tablet 800 mg PO Q8HP PRN (Reason: Moderate Pain) Qty: 30 0RF amoxicillin-pot clavulanate 875-125 mg tablet 1 tab PO BID 7 Days Qty: 14 0RF Referrals Follow up/Referrals: Provider,Referral, MD [Primary Care Provider, Medical] - See instructions Activity Restrictions/Add. Instructions Additional Instructions/Restrictions: Please use Olopatadine drops and artificial tears to help with irritation in the eye. In the event this is an early infection I want you to use erythromycin ointment. If you have any new or worsening symptoms please return. Please follow up with your eye doctor tomorrow as we discussed. Clinical Impressions Clinical Impression: Conjunctivitis Qualifiers: Conjunctivitis type: acute Stand Alone Forms Stand Alone Forms: Work/School Release Print Language Print Language: [place] Islander Discharge ED Provider: Mj Rice Adult HPI General Chief complaint: Eye Problems Stated complaint: burning in both eyes, drainage Time Seen by Provider: 07/05/25 17:28 Mode of Arrival: Ambulatory Source of Information: Patient Description of Symptoms (Recalled from ER Triage Doc. by RN): patient presents to the ED for bilateral eye burning/pain. Patient states his contact prescription and contact brand changed 3 days ago. both eyes are blood shot and very irritated upon assessment. History of Present Illness HPI narrative: Has a 20-year-old male patient, with no significant past medical history or daily medications, who is presenting to the emergency department today for evaluation of bilateral ocular irritation. Patient states that he was prescribed a new brand of contact lenses earlier this week. He wore them for the first time 3 days ago. He does not wear his contacts while sleeping. He woke up the following morning after wearing his contacts all day and noticed bilateral conjunctival irritation. He states that he has a burning sensation in his eyes bilaterally. He is also noting photophobia. He is not having headaches. No pain with extraocular movements. He has not noticed any swelling or erythema in the periorbital region. No fevers. Related Data Previous Rx's ?Medication ?Instructions ?Recorded ibuprofen 800 mg tablet (IBU) 800 mg PO Q8HP PRN Moderate Pain 11/25/24 #30 tabs amoxicillin 875 mg-potassium 1 tab PO BID 7 days #14 tabs 05/18/25 clavulanate 125 mg tablet carboxymethylcellulose sodium 1 % 1 drp ophthalmic (eye) Q8H #15 mL 07/05/25 eye drops (Artificial Tears (carboxymethylcellulose)) erythromycin 5 mg/gram (0.5 %) eye 1 applic ophthalmic (eye) Q8H #3.5 07/05/25 ointment grams olopatadine 0.1 % eye drops 1 drp ophthalmic (eye) BID #5 mL 07/05/25 Allergies Allergy/AdvReac Type Severity Reaction Status Date / Time No Known Allergies Allergy Verified 11/25/24 17:18 [facility] Disclaimer: The information contained in this section may have been updated after the patient was seen, as this information can be updated by other users. Medical History (Updated 07/05/25 @ 18:43 by Mj Rice DO) No significant past medical history Social History (Updated 06/17/23 @ 17:55 by Sean Friedman APRN) Smoking Status: Light tobacco smoker alcohol intake: never current occupational status: student Travel in the last 8 weeks?: None Have you lived/traveled outside US in past 30 days?: No Contact w/someone who lives/traveled outside US past 30 days?: No Exposure to someone with infectious disease in past 14 days?: No Do you have a fever (greater than 100.4 F or 38 C)?: No Have you tested positive for COVID-19?: No Exposed to someone with COVID-19 in past 14 days?: No Do you have a sore throat?: No Do you have a cough?: No Do you have any weakness?: No Do you have any diarrhea?: No Are you experiencing any unusual bleeding?: No Do you have any muscle aches/pain?: No Do you have any abdominal pain?: No Are you experiencing loss of taste or smell?: No ROS Obtained: Yes Systems reviewed as appropriate & no additional complaints except as documented Physical Exam General General appearance: other (See MDM) Respiratory Respiratory exam: Present other (See MDM) Cardiovascular Cardiovascular exam: Present other (See MDM) Neurological Exam Neurological exam: Present other (See MDM) Medical Decision Making Medical Records Medical records reviewed: Yes I reviewed the patient's medical records. Screening: Per USPSTF and CDC recommendations, given the prevalence of disease in our region, it is our hospital?s policy to screen for HIV and viral Hepatitis for all patients aged 18 and over and those with ongoing risk factors. Wayne Inquiry Pt receiving controlled substance: No Wayne was queried for this patient: No Vital Signs: 07/05/25 17:24 07/05/25 18:50 Temperature 97.7 F 98.0 F Temperature Source Temporal Artery Scan Temporal Artery Scan Pulse Rate 53 L Pulse Rate [Bilateral Radial] 79 Respiratory Rate 18 16 Blood Pressure 120/53 L Blood Pressure [Left Arm] 127/64 Blood Pressure Mean [Left Arm] 85 Blood Pressure Source Automatic Cuff Blood Pressure Source [Left Arm] Automatic Cuff Blood Pressure Position Sitting Blood Pressure Position [Left Arm] Sitting 02 Sat by Pulse Oximetry 100 Oxygen Delivery Method Room Air Room Air Orders (Tests/Meds): ED MEDICATIONS Discontinued Medications Generic Name Dose Route Start Last Admin Trade Name Freq PRN Reason Stop Dose Admin Fluorescein Sodium 1 mg 07/05/25 17:40 07/05/25 17:51 Fluorescein Sodium 1mg Strip OP 07/05/25 17:41 1 mg ONCE ONE Administration Tetracaine HCl 0 ml 07/05/25 17:40 07/05/25 17:51 Tetracaine 0.5% Opth Krystin 15ml OP 07/05/25 17:41 15 ml ONCE ONE Administration Medical Decision Narrative: In summary, this is a 20-year-old male patient who is presented to the emergency department today for evaluation of bilateral ocular pain and irritation after wearing a new contact lens brand the other day. Patient does not have any comorbidities that complicate his medical management or care. On initial evaluation of the patient they were resting comfortably in no acute distress and nontoxic in appearance. They are hemodynamically stable, saturating well room air, and are neurologically intact. On physical examination the patient's extraocular movements are intact. He has pupils that are equal round and reactive to light bilaterally. There is no evidence of afferent pupillary defect. He has good consensual pupillary constriction and response to light. Extraocular movements are painless. He does have conjunctival injection bilaterally, with relative sparing of the limbus. He also has papillary hypertrophy of the palpebral conjunctive up. After review of the literature, differential diagnosis includes contact lens induced irritative conjunctivitis, allergic conjunctivitis, giant papillary conjunctivitis, as well as other potential possibilities such as viral conjunctivitis keratitis, and iritis. I did perform intraocular pressure testing which showed an intraocular pressure of 10 mmHg bilaterally. Additionally, we did perform fluorescein staining of the eyes bilaterally and there is no corneal abrasion or dendritic appearing lesions on the cornea. The patient's visual acuities are poor and I do not have access to what his baseline visual acuity is. He does not have glasses so we cannot get a corrected visual acuity on the patient. The patient has not had any recent infectious symptoms that would make me think that this is reactive anterior uveitis. Additionally, uveitis would be very unlikely to occur bilaterally. The patient has not been sleeping in his contacts I feel that pseudomonal infection is also less likely. I did discuss the possibility of having the patient evaluated by ophthalmology, however he states that he does not have insurance and he does not want to be evaluated in [place] and would not be willing to be transferred down to [place]. He tells me that he would like to follow-up with his eye doctor here in [place] tomorrow morning. I feel that this is reasonable. We will treat the patient for irritative conjunctivitis with olopatadine drops, erythromycin ointment, and artificial tears. I have stressed the importance of follow-up in the morning with his eye doctor here in [facility] [facility]. At this time all questions have been answered and all parties are agreeable with the decision to discharge Critical Care Critical Care Time Critical Care Time: No
--- NOTE | 2025-07-05 17:48 | PC.NURSE ---
bilateral eyes 20/50, right eye 20/70, left eye 20/200
[2025-07-05] MEDS: TETRACAINE 0.5% OPTH SOL 15ML OP (17:51)
[2025-07-05] MEDS: FLUORESCEIN SODIUM 1MG STRIP 1 MG OP (17:51)
[2025-07-05 18:50] VITALS: BP 120/53; PULSE 53; RESP 16; TEMP 36.7; O2SAT 97
== END 2025-07-05 18:54 | disposition home or self-care (01) ==
PROVIDERS: Emergency Provider Student in an Organized Health Care Education/Training Program
DX: H10.33 Unspecified acute conjunctivitis, bilateral (principal)
CPT/HCPCS: 99283

== ENCOUNTER 2025-07-29 11:28 | Emergency (ER) | payer SELFPAY ==
[2025-07-29 11:35] VITALS: BP 138/75; PULSE 90; RESP 19; TEMP 36.6; O2SAT 96; BMI 20.7
--- OUTSIDE RECORDS SUMMARY | 2025-07-29 11:38 | XMS_ITS | Clinical Summary ---
Author Organization [facility] Address [address] [place] [address] Care Team Providers Care Motor Vehicle Assembler Name Role Phone Unavailable Primary Care Provider [...]
--- OUTSIDE RECORDS SUMMARY | 2025-07-29 11:38 | XMS_ITS | Clinical Summary ---
Author Organization [facility] Address [address] [place] [address] Care Team Providers Care Club Attendant Name Role Phone Alka Jameson M.D., [place] Primary Care [facility] Source Comments [facility] is fully rolled out with thefollowing exceptions:General Clinical Research [facility] Allergies No known active allergies Medications acetaminophen [...] of 3 - 19+ 3-dose series) 2023 AMB SEASONAL FLU VACCINE (#1) 07/10/2025 COVID-19 Vaccine (1 - 2023-2 5 season) 2025 HIB IMMUNIZATION Aged Out No longer e [...] age to complete this topic Insurance AETNA [facility] Care Teams Club Attendant Relationship Specialty Start Date End Date Los Rucker Jr., M.D. [address] [place] [address] [address] [place]ahn[place] [id number] PCP - General External Internal Medicine 07/17/12
--- OUTSIDE RECORDS SUMMARY | 2025-07-29 11:38 | XMS_ITS | Clinical Summary ---
Author Organization [facility] Address [address] [place] [address] Phone Care Team Providers Care Bobbin Cleaner Hand Name Role Phone Unavailable Primary Care Provider [...] COVID-19 Vaccine ( - 2023-2 5 season) 2025 Influenza Vaccine (#1) 2025 Pneumococcal Vaccine 0-49 Aged Out No longer eligible based on patient's age to complete this topic
--- NOTE | 2025-07-29 11:42 | ED_ITS ---
Discharge Plan Disposition Patient Disposition: Home, Self-Care Prescriptions Prescriptions: New olopatadine 0.1 % drops 1 drp ophthalmic (eye) BID Qty: 5 0RF Rx Instructions: separate doses by at least 6-8 hours No Action ibuprofen [IBU] 800 mg tablet 800 mg PO Q8HP PRN (Reason: Moderate Pain) Qty: 30 0RF amoxicillin-pot clavulanate 875-125 mg tablet 1 tab PO BID 7 Days Qty: 14 0RF olopatadine 0.1 % drops 1 drp ophthalmic (eye) BID Qty: 5 0RF Rx Instructions: separate doses by at least 6-8 hours erythromycin 5 mg/gram (0.5 %) ointment 1 applic ophthalmic (eye) Q8H Qty: 3.5 0RF Artificial Tears (cmc) 1 % drops 1 drp ophthalmic (eye) Q8H Qty: 15 0RF Referrals Follow up/Referrals: Provider,Referral, MD [Primary Care Provider, Medical] - See instructions Activity Restrictions/Add. Instructions Additional Instructions/Restrictions: Use eyedrops as prescribed. Follow-up with eye doctor. You may also take [id number] Zyrtec or Claritin for allergic symptoms as needed. Please return to the ER with any new, concerning, worsening symptoms Clinical Impressions Clinical Impression: Acute allergic conjunctivitis Qualifiers: Laterality: bilateral Qualified Code(s): H10.13 - Acute atopic conjunctivitis, bilateral Print Language Print Language: Lebanese Discharge ED Provider: Zander Mccoy General Adult HPI General Chief complaint: Eye Problems Stated complaint: Burning/drainage both eyes Time Seen by Provider: 07/29/25 11:35 Mode of Arrival: Ambulatory Source of Information: Patient Description of Symptoms (Recalled from ER Triage Doc. by RN): Patient presents to ED from home with c/o bilateral eye pain and redness. Patient states he was dx with an eye infection 2 weeks prior, states symptoms had went away but returned this AM. History of Present Illness HPI narrative: This is a 20-year-old male who presents with concern for bilateral eye redness and puffiness. States that he had a similar issue in the past and was prescribed eye ointment and eyedrops that improved his symptoms. Denies any cough, congestion, rhinorrhea, sore throat, fever. Denies any change in visual acuity. No pain with extraocular movements. Related Data Previous Rx's ?Medication ?Instructions ?Recorded ibuprofen 800 mg tablet (IBU) 800 mg PO Q8HP PRN Moder ate Pain 11/25/24 #30 tabs amoxicillin 875 mg-potassium 1 tab PO BID 7 days #14 t abs 05/18/25 clavulanate 125 mg tablet carboxymethylcellulose sodium 1 % 1 drp ophthalmic (ey e) Q8H #15 mL 07/05/25 eye drops (Artificial Tears (carboxymethylcellulose)) erythromycin 5 mg/gram (0.5 %) eye 1 applic ophthalmic (eye) Q8H #3.5 07/05/25 ointment grams olopatadine 0.1 % eye drops 1 drp ophthalmic (eye) BID #5 mL 07/05/25 olopatadine 0.1 % eye drops 1 drp ophthalmic (eye) BID #5 mL 07/29/25 Allergies Allergy/AdvReac Type Severity Reaction Status Date / Time No Known Allergies Allergy Verified 11/25/24 17:18 [facility] Disclaimer: The information contained in this section may have been updated after the patient was seen, as this information can be updated by other users. Medical History (Updated 07/29/25 @ 11:46 by Zander Mccoy MD) No significant past medical history Social History (Updated 06/17/23 @ 17:55 by Sean Friedman APRN) Smoking Status: Current every day smoker alcohol intake: never current occupational status: student Travel in the last 8 weeks?: None Have you lived/traveled outside [place] in past 30 days?: No Contact w/someone who lives/traveled outside [place] past 30 days?: No Exposure to someone with infectious disease in past 14 days?: No Do you have a fever (greater than 100.4 F or 38 C)?: No Have you tested positive for COVID-19?: No Exposed to someone with COVID-19 in past 14 days?: No Do you have a sore throat?: No Do you have a cough?: No Do you have any weakness?: No Do you have any diarrhea?: No Are you experiencing any unusual bleeding?: No Do you have any muscle aches/pain?: No Do you have any abdominal pain?: No Are you experiencing loss of taste or smell?: No ROS Obtained: Yes All systems reviewed & no additional complaints except as documented Physical Exam General General appearance: alert and in no apparent distress Head Head exam: atraumatic Eye Eye exam: Present PERRL, EOMI and conjunctival injection (Bilateral) Neck Neck exam: Present normal inspection and full ROM Chest Chest inspection: Present symmetric chest wall rise Respiratory Respiratory exam: Present normal lung sounds bilaterally; Absent respiratory distress Cardiovascular Cardiovascular exam: Present regular rate and normal rhythm Abdominal Exam Abdominal exam: Present soft; Absent distention Extremities Exam Extremities exam: Present normal inspection Neurological Exam Neurological exam: Present alert and oriented X3 Psychiatric Psychiatric exam: Present normal affect and normal mood Skin Skin exam: Present warm and dry Medical Decision Making Medical Records Medical records reviewed: Yes I reviewed the patient's medical records. Screening: Per USPSTF and CDC recommendations, given the prevalence of disease in our [place], it is our hospital?s policy to screen for HIV and viral Hepatitis for all patients aged 18 and over and those with ongoing risk factors. MR Comment: Emergency department visit from 07/05/2025 notable for presentation similar to today. Was prescribed oloptadine eye drops and erythromycin ointment. [place] Inquiry Pt receiving controlled substance: No Vital Signs: 07/29/25 11:35 Temperature 98 F Temperature Source Oral Pulse Rate [Right] 90 Respiratory Rate 19 Blood Pressure [Right Arm] 138/75 Blood Pressure Mean [Right Arm] 96 Blood Pressure Source [Right Arm] Automatic Cuff Blood Pressure Position [Right Arm] Supine 02 Sat by Pulse Oximetry 96 Oxygen Delivery Method Room Air Medical Decision Narrative: This is a 20-year-old male, otherwise healthy, presenting with concern for bilateral eye redness. On arrival, patient was hemodynamically stable, afebrile, no acute distress. No change in visual acuity. No pain with extraocular movements. Had watery discharge in bilateral conjunctival injection. Differential diagnosis includes but is not limited to viral, bacterial, or allergic conjunctivitis, foreign body, corneal abrasion, episcleritis. Most likely etiology of his symptoms is allergic conjunctivitis given the time of year and resolution after antihistamine eyedrops in the past. No infectious symptoms. Discussed with patient, and elected to prescribe antihistamine eyedrops and discharge. He stated that he would call the eye doctor to follow-up with soon as possible. Patient was in agreement with this plan and ultimately discharged in stable condition. Critical Care Critical Care Time Critical Care Time: No
[2025-07-29 11:49] VITALS: BP 119/74; PULSE 89; RESP 19; TEMP 36.9; O2SAT 98
== END 2025-07-29 11:50 | disposition home or self-care (01) ==
PROVIDERS: Emergency Provider Student in an Organized Health Care Education/Training Program
DX: H10.13 Acute atopic conjunctivitis, bilateral (principal); F17.200 Nicotine dependence, unspecified, uncomplicated
CPT/HCPCS: 99283